=== PATIENT | female | born 1965 | race Caucasian/White ===

== ENCOUNTER 2022-10-07 13:36 | Emergency (ER) | payer OTHER ==
[2022-10-07 13:48] VITALS: BP 183/104; PULSE 56; RESP 20; TEMP 97.8; BMI 18.8
== END 2022-10-07 14:50 | disposition home or self-care (01) ==
LOC: FER 13:36
DX: J01.00 Acute maxillary sinusitis, unspecified (principal)
CPT/HCPCS: 99281-25

== ENCOUNTER 2022-12-04 12:03 | Emergency (ER) | payer OTHER ==
[2022-12-04 12:17] VITALS: BP 160/110; PULSE 87; RESP 24; TEMP 98.7; BMI 19.8
== END 2022-12-04 13:04 | disposition home or self-care (01) ==
LOC: FER 12:03
DX: H93.8X3 Other specified disorders of ear, bilateral (principal); J43.9 Emphysema, unspecified
CPT/HCPCS: 99281-25